=== PATIENT | female | born 2000 | race American Indian/Alaskan Native ===

== ENCOUNTER 2021-06-08 19:14 | Emergency (ER) | payer MEDICAID ==
[2021-06-08 19:53] VITALS: BP 126/76
[2021-06-08] MEDS ORDERED: FAMOTIDINE 20 MG TAB PO ONE (20:39)
[2021-06-08] MEDS ORDERED: ACETAMINOPHEN 500 MG TAB PO ONE (20:39)
[2021-06-08] MEDS ORDERED: ONDANSETRON 4 MG ODT TAB PO ONE (20:39)
[2021-06-08 21:09] LABS: Basophils % (Auto) 0.5 % (0.0-1.8); Eosinophils # (Auto) 0.1 K/mm3 (0.0-0.4); Eosinophils % (Auto) 1.1 % (0.0-4.3); Hematocrit 37.7 % (30.3-42.9); Hemoglobin 12.5 gm/dl (10.1-14.3); Lymphocytes # (Auto) 2.5 K/mm3 (1.2-5.4); Lymphocytes % (Auto) 27.4 % (13.4-35.0); Mean Corpuscular HGB Conc 33 % (30-34); Mean Corpuscular Volume 79 fl (79-97); Monocytes # (Auto) 0.7 K/mm3 (0.0-0.8); Monocytes % (Auto) 7.6 % (0.0-7.3); Platelet Count 221 K/mm3 (140-440); Red Blood Count 4.78 M/mm3 (3.65-5.03); Red Cell Distribution Width 19.5 % (13.2-15.2)
[2021-06-08 21:34] LABS: Alanine Aminotransferase 10 units/L (7-56); Albumin 4.3 g/dL (3.9-5); Blood Urea Nitrogen 12 mg/dL (7-17); Calcium 9.5 mg/dL (8.4-10.2); Hemolysis Index 8
[2021-06-08 21:35] LABS: BUN/Creatinine Ratio 17
--- NOTE | 2021-06-08 21:56 | Emergency Department Report ---
ED Abdominal Pain HPI - General Chief Complaint: Abdominal Pain Stated Complaint: ABD/CHEST PAINS X5 DAYS Source: patient Mode of arrival: Ambulatory Limitations: No Limitations - History of Present Illness Initial Comments: Patient is a A0 21-year-old female with no past medical history presents to the ED with complaint of acute onset persistent right lower quadrant pain with nausea and vomiting and bilateral flank pain as well as epigastric and substernal chest pain for the last 4 days. Patient states that the pain is persistent and especially worse with movement or palpation. Patient denies dysuria, urinary frequency and urgency, fever, chills, dizziness, syncope, shortness of breath, hematochezia, vaginal bleeding, vaginal discharge or headache. MD Complaint: abdominal pain (Right lower quadrant pain;), flank pain (Bilateral flank pain), other (dysuria, chest pain with nausea) -: Sudden, days(s) (2) Location: RLQ, suprapubic, bilateral flank Radiation: LLQ, RLQ, bilateral flank, back Migration to: bilateral flank Severity: severe Severity scale (0 -10): 7 Quality: aching, sharp Consistency: constant Improves With: nothing Worsens With: nothing Associated Symptoms: denies other symptoms, nausea, anorexia. denies: vomiting, diarrhea, fever, chills, constipation, dysuria, hematemesis, melena, syncope - Related Data LMP Date: 04/09/21 Previous Rx's Medication Instructions Recorded Last Taken Type Acetaminophen [Non-Aspirin Pain 500 mg PO Q8H PRN #12 tablet 09/13/18 Unknown Rx Relief] Amoxicillin [Amoxicillin TAB] 875 mg PO BID 10 Days #20 tablet 09/13/18 Unknown Rx guaiFENesin [Mucinex] 600 mg PO Q12H 5 Days #10 09/13/18 Unknown Rx tab.er.12h Ibuprofen [Motrin] 600 mg PO Q8H PRN #30 tablet 06/09/21 Unknown Rx Ondansetron [Zofran Odt] 4 mg PO Q6H PRN #20 tab.rapdis 06/09/21 Unknown Rx cephALEXin [Keflex] 500 mg PO Q8HR #30 cap 06/09/21 Unknown Rx traMADoL [Ultram] 50 mg PO Q6HR PRN #10 tablet 06/09/21 Unknown Rx Allergies Allergy/AdvReac Type Severity Reaction Status Date / Time No Known Allergies Allergy Verified 09/13/18 13:41 ED Review of Systems ROS: Stated complaint: ABD/CHEST PAINS X5 DAYS Other details as noted in HPI Constitutional: denies: chills, fever Eyes: denies: eye pain, eye discharge, vision change ENT: denies: ear pain, throat pain Respiratory: denies: cough, shortness of breath, wheezing Cardiovascular: denies: chest pain, palpitations Endocrine: no symptoms reported Gastrointestinal: abdominal pain (RLQ and bilateral flank pain), nausea. denies: diarrhea, melena Genitourinary: urgency, dysuria, frequency. denies: hematuria, discharge, abnormal menses Musculoskeletal: denies: back pain, joint swelling, arthralgia Skin: denies: rash, lesions Neurological: denies: headache, weakness, paresthesias Psychiatric: denies: anxiety, depression Hematological/Lymphatic: denies: easy bleeding, easy bruising ED Past Medical Hx - Past Medical History Previous Medical History?: No - Surgical History Past Surgical History?: Yes Additional Surgical History: hernia repair - Social History Smoking Status: Never Smoker Substance Use Type: None - Medications Home Medications: Home Medications Medication Instructions Recorded Confirmed Last Taken Type Acetaminophen [Non-Aspirin Pain 500 mg PO Q8H PRN #12 tablet 09/13/18 Unknown Rx Relief] Amoxicillin [Amoxicillin TAB] 875 mg PO BID 10 Days #20 tablet 09/13/18 Unknown Rx guaiFENesin [Mucinex] 600 mg PO Q12H 5 Days #10 09/13/18 Unknown Rx tab.er.12h Ibuprofen [Motrin] 600 mg PO Q8H PRN #30 tablet 06/09/21 Unknown Rx Ondansetron [Zofran Odt] 4 mg PO Q6H PRN #20 tab.rapdis 06/09/21 Unknown Rx cephALEXin [Keflex] 500 mg PO Q8HR #30 cap 06/09/21 Unknown Rx traMADoL [Ultram] 50 mg PO Q6HR PRN #10 tablet 06/09/21 Unknown Rx ED Physical Exam - General Limitations: No Limitations General appearance: alert, in no apparent distress - Head Head exam: Present: atraumatic, normocephalic, normal inspection - Eye Eye exam: Present: normal appearance, PERRL, EOMI Pupils: Present: normal accommodation - ENT ENT exam: Present: normal exam, normal orophraynx, mucous membranes moist, TM's normal bilaterally, normal external ear exam - Neck Neck exam: Present: normal inspection, full ROM - Respiratory Respiratory exam: Present: normal lung sounds bilaterally. Absent: respiratory distress, wheezes, rales, rhonchi, chest wall tenderness, accessory muscle use, decreased breath sounds - Cardiovascular Cardiovascular Exam: Present: regular rate, normal rhythm, normal heart sounds. Absent: systolic murmur, diastolic murmur, rubs, gallop - GI/Abdominal GI/Abdominal exam: Present: soft, tenderness (Palpable RLQ and suprapubic tenderness), normal bowel sounds. Absent: guarding, rebound, hyperactive bowel sounds, hypoactive bowel sounds, organomegaly, bruit - Extremities Exam Extremities exam: Present: normal inspection, full ROM, normal capillary refill - Back Exam Back exam: Present: normal inspection, full ROM, CVA tenderness (R), CVA tenderness (L). Absent: tenderness, muscle spasm, paraspinal tenderness, vertebral tenderness - Neurological Exam Neurological exam: Present: alert, oriented X3, CN II-XII intact, normal gait, reflexes normal - Psychiatric Psychiatric exam: Present: normal affect, normal mood - Skin Skin exam: Present: warm, dry, intact, normal color. Absent: rash ED Course Vital Signs 06/08/21 19:49 Temperature 98.9 F Respiratory 18 Rate Blood Pressure 126/76 ED Medical Decision Making - Lab Data Result diagrams: 06/08/21 20:48 06/08/21 20:48 - Radiology Data Radiology results: report reviewed, image reviewed [address] [address] Cat Scan Report Signed Patient: VERONIKA LUCERO MR#: [id number] 0 : 2000 A cct:[id number] Age/Sex: 21 / F ADM Date: 06/08/21 Loc: ED Attending Dr: Ordering Physician: ADONIS CHAN Date of Service: 06/08/21 Procedure(s): CT abdomen pelvis w con Accession Number(s): [id number] cc: ADONIS CHAN CT ABDOMEN AND PELVIS WITH CONTRAST INDICATION: Pt complains of R.L.Q. abdominal pain CONTRAST: 100 cc Omnipaque 300 IV COMPARISON: None available. All CT scans at this location are performed using CT dose reduction for ALARA by means of automated exposure control. FINDINGS: Lung bases are clear. No pneumoperitoneum is seen. No abdominal ma sses are noted. No inflammatory changes are seen. No bowel or urinary obstructive changes are noted . Cecum has a low lying position well into the pelvis posteriorly. Believe is the appendix is partially seen and shows no abnormalities. A right ovarian cyst is seen measuring 2.5 cm which is thought likely physiologic. No significant free fluid is seen with only a minimal amount noted in the pelvis. No lymphadenopathy is seen. IMPRESSION: No acute abnormalities are seen Signer Name: Allan Ngo MD Signed: 06/08/2021 11:28 PM Workstation Name: [id number] Transcribed By: GJ Dictated By: Allan Ngo MD Electronically Authenticated By: Allan Ngo MD Signed Date/Time: 06/08/212327 DD/ 23 TD/TT: - Medical Decision Making This is a A0 21-year-old female with no past medical history presents to the ED with complaint of acute onset persistent right lower quadrant pain with nausea and vomiting and bilateral flank pain as well as epigastric and substernal chest pain for the last 4 days. Patient states that the pain is persistent and especially worse with movement or palpation. In the ED, patient is alert and oriented x3 and is not in any distress. Patient was treated for pain in the ED. Patient also was treated with normal saline 1 L IV bolus x1 and antiemetics. Urinalysis shows mild urinary tract infection. On reevaluation, patient's pain is well controlled medications. Lab test results were reviewed and are all nonactionable. Abdomen pelvis CT scan with contrast showed no acute abnormalities except for a 2.5 cm right ovarian cyst. On reevaluation, pollo ent's pain is well controlled medication. 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 Patient was advised return to the ED immediately if symptoms get worse. - Differential Diagnosis Appendicitis; UTI; ; Kidney stones; dysmenorrhea Critical care attestation.: If time is entered above; I have spent that time in minutes in the direct care of this critically ill patient, excluding procedure time. ED Disposition Clinical Impression: Acute abdominal pain in right lower quadrant, Nausea and vomiting in adult patient, Right ovarian cyst, Acute urinary tract infection Disposition: HOME / SELF CARE / HOMELESS Is pt being admited?: No Does the pt Need Aspirin: No Condition: Stable Instructions: Nausea and Vomiting, Adult, [id number], Abdominal Pain, Adult, [id number], Flank Pain, Adult, [id number], Abdominal Pain (ED) Additional Instructions: All lab test results were reviewed and are all nonactionable except for urinalysis that showed UTI. Abdomen pelvis CT scan with contrast showed no acute abnormalities except for 2.5 cm right ovarian cyst. The appendix is unremarkable. Therefore take medications with food, drink plenty fluids and follow-up with your primary care physician in 5 to 7 days for reevaluation. Return to the ED immediately if symptoms get worse. Prescriptions: cephALEXin [Keflex] 500 mg PO Q8HR #30 cap Ibuprofen [Motrin] 600 mg PO Q8H PRN #30 tablet PRN Reason: Pain traMADoL [Ultram] 50 mg PO Q6HR PRN #10 tablet PRN Reason: Pain Ondansetron [Zofran Odt] 4 mg PO Q6H PRN #20 tab.rapdis PRN Reason: Nausea Referrals: [facility] [Provider Group] - 3-5 Days Time of Disposition: 22:00 Print Language: QATARI
--- NOTE | 2021-06-08 23:32 | Cat Scan Report ---
CT ABDOMEN AND PELVIS WITH CONTRAST INDICATION: Pt complains of R.L.Q. abdominal pain CONTRAST: 100 cc Omnipaque 300 IV COMPARISON: None available. All CT scans at this location are performed using CT dose reduction for ALARA by means of automated e xposure control. FINDINGS: Lung bases are clear. No pneumoperitoneum is seen. No abdominal masses are noted. No inflam matory changes are seen. No bowel or urinary obstructive changes are noted. Cecum has a low lying pos ition well into the pelvis posteriorly. Believe is the appendix is partially seen and shows no abnormalities. A right ovarian cyst is seen me asuring 2.5 cm which is thought likely physiologic. No significant free fluid is seen with only a min imal amount noted in the pelvis. No lymphadenopathy is seen. IMPRESSION: No acute abnormalities are seen Signer Name: Allan Ngo MD Signed: 06/08/2021 11:28 PM Workstation Name: [id number]
[2021-06-09 00:50] LABS: Mucus,Urine FEW /HPF
[2021-06-09] MEDS ORDERED: ONDANSETRON 4 MG ODT TAB PO ONE (01:10)
[2021-06-09] MEDS ORDERED: FAMOTIDINE 20 MG TAB PO ONE (01:10)
[2021-06-09] MEDS ORDERED: ACETAMINOPHEN 500 MG TAB PO ONE (01:20)
[2021-06-09 01:23] LABS: Bilirubin,Urine Negative (Negative); Blood,Urine Trace (Negative); Color,Urine Straw (Yellow)
== END 2021-06-09 02:12 | disposition home or self-care (01) ==
LOC: ED 19:14
DX: R10.31 Right lower quadrant pain (principal); R11.2 Nausea with vomiting, unspecified; N83.209 Unspecified ovarian cyst, unspecified side; N39.0 Urinary tract infection, site not specified
CPT/HCPCS: 36415; 74177; 80053; 81001; 83690; 84484; 84703; 85025; 87086; 99284; Q9967; Q0162